=== PATIENT | male | born 1980 | race Caucasian/White ===

== ENCOUNTER → 2016-06-12 | Day surgery (SDC) | payer BC ==
[2016-06-11 14:22] VITALS: Ht 170.2 cm; Wt 75.0 kg
[~2016-06-12] VITALS: Ht 170.2 cm; Wt 75.0 kg
[~2016-06-12] MED LIST: AMPH20CA3 PO; ATROPINE SULFATE 0.1 MG/ML 5ML SYR IV PRN; BUPIVACAINE/EPINEPHRINE 0.5% MPF 1:200,000 30 ML VIAL ONE; CEFAZOLIN 1000MG/55 ML D5W IV SCH; CEFAZOLIN 2000 MG/60 ML D5W 60 ML IV SCH; CEFAZOLIN SOD 1 GM VIAL ONE; CEFAZOLIN SOD 1000MG/55 ML D5W IV ONE; DEXAMETHASONE SOD INJ 4 MG/ML VIAL ONE; EpHEDrine SULFATE INJ 50 MG/ML AMP IV PRN; FENTANYL CITRATE INJ 50 MCG/1 ML 2 ML VIAL ONE; GLYCOPYRROLATE INJ 0.2 MG/ML VIAL ONE; HYDR2TAB48 PO; HYDROmorphone HCL 2 MG TAB PO PRN; KETOROLAC TROMETHAMINE 30 MG/ML VIAL ONE; LACTATED RINGER'S 1000ML 1,000 ML IV SCH; LIDOCAINE HCL 2% 2 ML VIAL (20MG/ML) ONE; MIDAZOLAM HCL 1 MG/ML 2ML VIAL ONE; NEOSTIGMINE METHYLSULFATE 5 MG/5 ML SYR ONE; NURSING VERBAL MED ORDER ONE; ONDANSETRON INJ 2 MG/ML 2 ML VIAL IV PRN; ONDANSETRON INJ 2 MG/ML 2 ML VIAL ONE; OXYC-57 PO; OXYCODONE/ACETAMINOPHEN 5-325 TAB PO PRN; PROPOFOL IV EMULSION 10 MG/ML 20 ML VIAL IV ONE; ROCURONIUM BROMIDE 10 MG/ML 5 ML VIAL ONE; SODIUM CHLORIDE 0.9% 1000ML 1,000 ML IV SCH
--- NOTE | 2016-06-12 09:06 | History & Physical Bridge - [place] ---
H&P Re-Evaluation Bridge Note: I have examined the patient, reviewed the History & Physical and in the interval since the performance of the History & Physical I have noted the following changes of clinical significance: No changes noted
--- NOTE | 2016-06-12 11:44 | [facility] Post Operative Brief Note ---
Immediate Operative Summary Operative Date Jun 12, 2016. Pre-Operative Diagnosis Displaced Comminuted Left Elbow Fracture Post-Operative Diagnosis Same Procedure(s) Performed Left Elbow Open Reduction Internal Fixation Surgeon Dr. Vu [employer] Installer Surgeon(s) Rossana Echevarria PA-C Estimated Blood Loss 50 mL Findings Displaced Olecranon Fracture Specimens None Anesthesia General Complication(s) None Disposition Recovery Room / PACU
--- NOTE | 2016-06-12 11:48 | Discharge Instructions-SurgCtr ---
Discharge Instructions Date of Service Jun 12, 2016. Visit Reason for Visit: Displaced Left Elbow Fx Discharge Discharge Diagnosis / Problem: left olecranon fracture Discharge Goals Goal(s): Improve function, Therapeutic intervention Activity Recommendations Activity Limitations: per Instructions/Follow-up section limited use of left arm Anesthesia . Post Anesthesia Instructions: If you have had General Anesthesia or IV Sedation: * Do not drive today. * Resume driving when surgeon permits. * Do not make important decisions or sign legal documents today. * Call surgeon for: 1. Temperature elevations greater than 101 degrees F. 2. Uncontrollable pain. 3. Excessive bleeding. 4. Persistent nausea and vomiting. 5. Medication intolerance (nausea, vomiting or rash). * For nausea and vomiting use only clear liquids such as: tea, soda, bouillon until nausea subsides, then gradually increase diet as tolerated. * If you have any concerns or questions, call your surgeon's office. If physician is unavailable and it is an emergency, call 911 or go to the nearest emergency room. . Instructions / Follow-Up Instructions / Follow-Up MEDICATIONS: * Resume previous medications unless instructed otherwise by your surgeon. * Always take pain medication on a full stomach or with food to avoid upset stomach. * Do not drink alcohol or drive while taking narcotics. * Ibuprofen or Tylenol may be taken if narcotic not needed. SPECIAL CARE INSTRUCTIONS: __ None _x_ Keep extremity elevated and iced x 48 hours; apply ice 20-30 minutes 8-10 times/day. May remove at night. __ Sling __24 hrs/day __ Remove at night __ Shoulder Immobilizer __ 24 hrs/day __ Remove at night _x_ Dressing x__ Maintain until seen in office, may shower with plastic over site __ Remove dressings in 24-48 hours and then may shower __ Cover incisions with band-aids after showering __ Do not remove steri-strips Call physician if chills or temperature rises above 102 degrees or pain unrelieved by prescribed pain medications at . . follow up saturday 06/17 Diet Recommendations Home Diet: no limitations Procedures Procedures Performed: Left Elbow Open Reduction Internal Fixation Pending Studies Studies pending at discharge: no Medical Emergencies . Who to Call and When: Medical Emergencies: If at any time you feel your situation is an emergency, please call 911 immediately. . Non-Emergent Contact Non-Emergency issues call your: Primary Care Provider, Surgeon . . "Provider Documentation" section prepared by Neo Echevarria.
[2016-06-12] MEDS: FENTANYL CITRATE INJ 50 MCG/1 ML 2 ML VIAL IV PRN ×2 (12:38→13:06)
[2016-06-12 13:30] VITALS: TEMP 36.6
--- NOTE | 2016-06-12 13:57 | Anesthesia Progress Nt - [facility] ---
Anesthesia Post Op Note Date & Time Jun 12, 2016 at 13:57 Vital Signs Vital Signs Past 12 Hours Date Time Temp Pulse Resp B/P Pulse Ox O2 Delivery O2 Flow Rate FiO2 06/12/16 13:30 36.6 93 16 152/93 95 Room Air 06/12/16 13:15 89 12 137/76 95 Room Air 06/12/16 13:12 37.0 91 12 137/76 95 Room Air 06/12/16 13:05 94 12 139/85 96 Room Air 06/12/16 12:55 91 92 145/83 96 Room Air 06/12/16 12:45 86 12 141/76 100 Diffusion Mask 6 06/12/16 12:35 89 16 142/83 96 Room Air 06/12/16 12:25 87 12 137/79 100 Diffusion Mask 6 06/12/16 12:15 82 12 139/81 100 Diffusion Mask 6 06/12/16 12:05 83 12 159/81 100 Diffusion Mask 6 06/12/16 11:55 91 12 155/12 100 Diffusion Mask 6 06/12/16 11:50 84 12 154/67 100 Diffusion Mask 6 06/12/16 11:46 37.3 100 12 154/82 100 Diffusion Mask 6 06/12/16 07:57 37 85 20 131/77 98 Room Air Notes Mental Status: alert / awake / arousable, participated in evaluation Pt Amnestic to Procedure: Yes Nausea / Vomiting: adequately controlled Pain: adequately controlled Airway Patency, RR, SpO2: stable & adequate BP & HR: stable & adequate Hydration State: stable & adequate Anesthetic Complications: no major complications apparent
[2016-06-12 14:00] VITALS: BP 136/73; PULSE 96; O2SAT 97
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
== END | disposition home or self-care (01) ==
LOC: X.SURG 07:43
PROVIDERS: ATTEND Orthopaedic Surgery Sports Medicine
DX: S52.022A Displaced fracture of olecranon process without intraarticular extension of left ulna, initial encounter for closed fracture (principal); V86.92XA Unspecified occupant of snowmobile injured in nontraffic accident, initial encounter; Y93.29 Activity, other involving ice and snow; Y92.818 Other transport vehicle as the place of occurrence of the external cause; Y99.8 Other external cause status; Z87.442 Personal history of urinary calculi